=== PATIENT | male | born 1930 | race Caucasian/White ===

== ENCOUNTER → 2017-12-29 | Outpatient (CLI) | payer MEDICARE, BC ==
[~2017-12-29] MED LIST: ADVAIR 250/28 DISKUS IH; ALLOPURINOL100 MG PO; FISH OIL1 IU PO; GLUCOSAMINE PO
== END ==
LOC: MHCPAIN 08:53
DX: G89.29 Other chronic pain (principal); M47.817 Spondylosis without myelopathy or radiculopathy, lumbosacral region; M54.16 Radiculopathy, lumbar region; M53.3 Sacrococcygeal disorders, not elsewhere classified; M48.061 Spinal stenosis, lumbar region without neurogenic claudication
CPT/HCPCS: G0463

== ENCOUNTER → 2017-12-29 | Outpatient (CLI) | payer MEDICARE, BC | LOC: COL.RAD 10:02 | DX: M48.061 Spinal stenosis, lumbar region without neurogenic claudication (principal); M43.16 Spondylolisthesis, lumbar region; M51.36 Other intervertebral disc degeneration, lumbar region ==

== ENCOUNTER → 2018-01-04 | Outpatient (CLI) | payer MEDICARE, BC | LOC: MHCPAIN 13:33 | DX: M47.817 Spondylosis without myelopathy or radiculopathy, lumbosacral region (principal); M54.16 Radiculopathy, lumbar region | CPT/HCPCS: J1100; Q9967 ==

== ENCOUNTER → 2018-01-25 | Outpatient (CLI) | payer MEDICARE, BC | LOC: MHCPAIN 09:29 | DX: G89.29 Other chronic pain (principal); M47.817 Spondylosis without myelopathy or radiculopathy, lumbosacral region; M54.16 Radiculopathy, lumbar region; M53.3 Sacrococcygeal disorders, not elsewhere classified; M48.061 Spinal stenosis, lumbar region without neurogenic claudication | CPT/HCPCS: G0463 ==

== ENCOUNTER 2018-03-25 11:56 | Day surgery (SDC) | payer MEDICARE, BC ==
[2018-03-25] VITALS (8 sets, daily range): BP systolic 137–161; BP diastolic 68–84; PULSE 59–72; TEMP 98.7
[~2018-03-25] VITALS: Ht 167.8 cm; Wt 82.0 kg
[2018-03-25 12:33] LABS: HEMATOCRIT 40.4 % (42.0-52.0); HEMOGLOBIN 13.9 g/dl (13.5-18.0); MEAN CELL VOLUME 102 fl (80.0-100.0); MEAN CORPUSCULAR HEMOGLOBIN 35 pg (27.0-31.0); MEAN CORPUSCULAR HGB CONC 34 g/dl (33.0-37.0); MEAN PLATELET VOLUME 8.7 fl (7.4-10.4); PLATELET COUNT 225 K/mm3 (130-400); RED BLOOD COUNT 3.95 M/mm3 (4.20-5.60); REDCELL DISTRIBUTION WIDTH-CV 13.8 % (11.5-14.5)
[2018-03-25 12:39] LABS: CALCIUM 9.5 mg/dL (8.4-10.2); CREATININE, serum 1.2 mg/dL (0.66-1.25); POTASSIUM 4.6 mmol/L (3.4-5.0)
[2018-03-25 12:40] LABS: INR 0.9 (0.8-3.0); PROTHROMBIN TIME 10.6 SECONDS (9.7-12.8)
[2018-03-25] MEDS ORDERED: SYNTHROID0.088 MG/T PO (13:02)
[2018-03-25] MEDS ORDERED: RT ADVAIR 228 DISKUS IH (13:03)
[2018-03-25] MEDS ORDERED: ZYLOPRIM 100MG100 MG PO (13:03)
[2018-03-25] MEDS ORDERED: EPA FISH OIL1 SGL PO (13:04)
[2018-03-25] MEDS ORDERED: GLUCOSAMINE & C1 TAB PO (13:04)
[2018-03-25] MEDS ORDERED: OCUVITE1 TA1 PO (13:05)
[2018-03-25] MEDS ORDERED: ALEVE 220MG220 MG PO (13:05)
[2018-03-25] MEDS ORDERED: NATURE'S BLEND100 M2 PO (13:06)
[2018-03-25] MEDS ORDERED: LIPITOR20 MG PO (13:06)
[2018-03-25] MEDS ORDERED: ASPIRIN E.C. 8181 MG PO (13:07)
== END 2018-03-25 18:40 | disposition home or self-care (01) ==
LOC: COL.CAR 11:56
PROVIDERS: Internal Medicine Cardiovascular Disease
DX: I25.10 Atherosclerotic heart disease of native coronary artery without angina pectoris (principal); R94.39 Abnormal result of other cardiovascular function study; E78.5 Hyperlipidemia, unspecified; R73.03 Prediabetes; J44.9 Chronic obstructive pulmonary disease, unspecified; E03.9 Hypothyroidism, unspecified; Z79.82 Long term (current) use of aspirin; Z82.49 Family history of ischemic heart disease and other diseases of the circulatory system
CPT/HCPCS: C1769; C1887; J1644; J2250; J3010; Q9967

== ENCOUNTER → 2018-07-21 13:30 | Outpatient (RCR) | payer MEDICARE, BC ==
[~2018-07-21 13:30] MED LIST changes: +ALEVE 220MG220 MG PO; +ASPIRIN E.C. 8181 MG PO; +EPA FISH OIL1 SGL PO; +GLUCOSAMINE & C1 TAB PO; +LIPITOR20 MG PO; +NATURE'S BLEND100 M2 PO; +OCUVITE1 TA1 PO; +RT ADVAIR 228 DISKUS IH; +SYNTHROID0.088 MG/T PO; +ZYLOPRIM 100MG100 MG PO
== END | disposition home or self-care (01) ==
LOC: WSC 06-08 13:56 → WSPT 06-11 14:45 → WSC 06-16 10:15 → WSPT 06-21 11:15 → WSC 06-23 11:15 → WSPT 06-28 11:15 → WSC 06-30 13:45 → WSPT 07-12 13:30 → WSC 13:30
DX: M48.061 Spinal stenosis, lumbar region without neurogenic claudication (principal); M71.38 Other bursal cyst, other site; Z79.891 Long term (current) use of opiate analgesic; Z79.899 Other long term (current) drug therapy

== ENCOUNTER 2019-01-01 13:06 | Emergency (ER) | payer MEDICARE, BC ==
[~2019-01-01] VITALS: Ht 167.6 cm; Wt 80.5 kg
[2019-01-01 13:13] VITALS: TEMP 97.7
[2019-01-01 13:27] LABS: BASO % 0.5 % (0.0-2.0); EOS # 0.2 (0.0-0.7); EOS % 4.4 % (0-4.0); GRAN # 4.1 (1.4-6.5); GRAN % 73.9 % (42.2-75.2); HEMATOCRIT 37.9 % (42.0-52.0); HEMOGLOBIN 12.8 g/dl (13.5-18.0); LYMPH # 0.9 (1.2-3.4); LYMPH % 15.7 % (20.0-51.0); MEAN CELL VOLUME 106 fl (80.0-100.0); MEAN CORPUSCULAR HEMOGLOBIN 36 pg (27.0-31.0); MEAN CORPUSCULAR HGB CONC 34 g/dl (33.0-37.0); MEAN PLATELET VOLUME 8.8 fl (7.4-10.4); MONO # 0.3 (0.1-0.6); MONO % 5.1 % (1.7-9.3); PLATELET COUNT 205 K/mm3 (130-400); RED BLOOD COUNT 3.59 M/mm3 (4.20-5.60); REDCELL DISTRIBUTION WIDTH-CV 13.8 % (11.5-14.5)
[2019-01-01 13:29] LABS: INR 0.9 (0.8-3.0)
[2019-01-01 13:32] LABS: PARTIAL THROMBOPLASTIN TIME 27.5 SECONDS (26.0-37.0)
[2019-01-01 13:39] LABS: ALBUMIN 4.2 gm/dL (3.5-5.0); BILIRUBIN,TOTAL 0.7 mg/dL (0.0-1.0); CALCIUM 9.1 mg/dL (8.4-10.2); CREATININE, serum 1.34 (0.66-1.25); POTASSIUM 4.7 mmol/L (3.4-5.0)
[2019-01-01 13:50] LABS: TROPONIN-I 0.013 ng/mL (0.000-0.035)
[2019-01-01 18:45] VITALS: BP 151/76; PULSE 75
== END 2019-01-01 18:51 | disposition short-term general hospital (02) ==
LOC: COL.ER 13:06
PROVIDERS: Family Medicine
DX: I21.4 Non-ST elevation (NSTEMI) myocardial infarction (principal); G12.21 Amyotrophic lateral sclerosis; I25.10 Atherosclerotic heart disease of native coronary artery without angina pectoris; Z79.51 Long term (current) use of inhaled steroids; Z95.5 Presence of coronary angioplasty implant and graft
CPT/HCPCS: J1650

== ENCOUNTER 2019-04-08 07:42 | Emergency (ER) | payer MEDICARE, BC ==
[~2019-04-08] VITALS: Ht 167.6 cm; Wt 81.8 kg
[2019-04-08 07:44] VITALS: TEMP 98.1
[2019-04-08] MEDS ORDERED: OMNICEF 300MG300 MG PO (08:09)
[2019-04-08] MEDS ORDERED: DOXYCYCLINE 10100 MG PO (08:09)
[2019-04-08] MEDS ORDERED: NORVASC2.5 MG PO (08:19)
[2019-04-08] MEDS ORDERED: ZEBETA 5MG5 MG PO (08:41)
[2019-04-08 08:52] VITALS: BP 163/84; PULSE 65
== END 2019-04-08 08:52 | disposition home or self-care (01) ==
LOC: COL.ER 07:42
DX: R04.0 Epistaxis (principal); I10 Essential (primary) hypertension; I25.10 Atherosclerotic heart disease of native coronary artery without angina pectoris; Z79.51 Long term (current) use of inhaled steroids

== ENCOUNTER → 2019-07-19 | Outpatient (CLI) | payer MEDICARE, BC ==
[~2019-07-19] MED LIST changes: +DOXYCYCLINE 10100 MG PO; +NORVASC2.5 MG PO; +OMNICEF 300MG300 MG PO; +ZEBETA 5MG5 MG PO
== END ==
LOC: COL.RAD 01-26 13:00
DX: Z01.812 Encounter for preprocedural laboratory examination (principal); I71.2 Thoracic aortic aneurysm, without rupture
CPT/HCPCS: Q9967